=== PATIENT | male | born 1975 | race Caucasian/White ===

== ENCOUNTER 2017-03-04 13:42 | Inpatient (IN) | payer OTHER ==
[~2017-03-04] VITALS: Ht 177.8 cm; Wt 154.3 kg
--- NOTE | ~2017-03-04 | EKG ---
[facility] [address] [facility] [place], [place] [address] Draft EK completed, results pending confirmation PATIENT NAME: JENNIFER ARMSTRONG Electrocardiogram DATE OF : 77 PHYSICIAN: PRELIMINARY REPORT #: [id number] REPORT IS CONFIDENTIAL AND NOT TO BE RELEASED WITHOUT AUTHORIZATION
--- NOTE | ~2017-03-04 | HP ---
[facility] [address] [place], [place] [address] Draft DATE OF ADMISSION: 03/04/17 IDENTIFICATION This is a 41-year-old male who was worked up by the ER physician for left upper quadrant pain. Apparently, he had this same problem a couple weeks ago. He ended up getting a narcotic shot, getting better, going on home. ER physician stormy got blood work on him. His white count was elevated at 14.8 with 83% neutrophils, 331 platelets. His chem panel, sodium 135, potassium 3.8, creatinine 0.9, BUN 18. Urine is clean. CMP is also otherwise normal, LFTs, etc. CT scan showed that he has an appendix that is abnormally dilated. There is periappendiceal fat stranding. No periappendiceal fluid or extraluminal gas. Appendix measures up to 1.3 cm in diameter, got hepatic steatosis and colon diverticulosis. I reviewed the scan. I did not see a fecalith and I concur with the diagnosis and I went back and did an H and P on him. He has had pain today since this morning. He said he woke up around 11:00 with it. PAST MEDICAL HISTORY He denies hypertension, diabetes, tuberculosis, seizures or transfusion. There is no history of thromboembolic disease. ALLERGIES: He says he is allergic to fish. MEDICATIONS: He takes no medicines. PAST SURGICAL HISTORY: He has never had surgery. SOCIAL HISTORY He never smoked. Rarely uses alcohol. He is not , never been . Does not have any children. He does not have a regular doctor. 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 Lives locally on [address] His hobby is not much. 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 He says his weight is 280 pounds and he got bigger after he quit playing competitive hockey. REVIEW OF SYSTEMS Positive for being overweight. Negative for IL. Negative for angina. Negative for lung disease. Positive for the present illness as far as GI goes. Negative for musculoskeletal, or skin problems. Negative for blood problems such as hepatitis. Negative for endocrine problems. Negative for lymphatic problems. Positive for some history of depression after he quit hockey. PHYSICAL EXAMINATION: VITAL SIGNS: Normal in the ER. PATIENT NAME: JENNIFER ARMSTRONG HISTORY AND PHYSICAL DATE OF : 77 PHYSICIAN: GURVINDER MAGANA MD REPORT #: [id number] REPORT IS CONFIDENTIAL AND NOT TO BE RELEASED WITHOUT AUTHORIZATION [facility] [address] [place], [place] [address] Draft GENERAL: He is a big man. HEAD, EYES, EARS, NOSE, AND THROAT: Normal. NECK: Without jugular venous distention, masses or bruits. CHEST: Clear. HEART: Regular rate and rhythm. No rubs, gallops or murmurs. ABDOMEN: Bowel problems. He is morbidly obese. Huge pannus. He says he weighs 280 pounds. I do not detect any left upper quadrant tenderness when I examined him. When I pushed real deeply in the right lower quadrant, he says he has some discomfort there. Yet, obese people can have fair amount of pain in the adipose tissue. RECTAL: Did not do a rectal exam. EXTREMITIES: Pedal pulse exam is normal. NEUROLOGIC: Normal for motor, sensory and speech, and I presume he walked in here. IMPRESSION AND PLAN Acute appendicitis. It is 9:00 at night right now. I discussed with him some options. A: Appendectomy tonight, which would be open by me, big incision on a jewels this big just to get down there and do it versus sitting on him overnight, give him IV fluids and antibiotics and hopefully get one of the local surgeons, and I did talk to Dr. Brenner about this to consider laparoscopic appendectomy, which on someone this big, is a pretty good idea maybe and yet I am not skilled at laparoscopic appendectomies and I do not typically do those for acute appendicitis and I actually talked to Dr. Brenner who agreed that he would be willing to do this and he is taking care of people like this. Dr. Brenner related that that he has not done an appendectomy at nighttime in 12 years and that he probably would not get into it until after office is done tomorrow, but he has done that before and the likelihood of this jewels getting significantly worse is low and plus simply believe in treating appendicitis with antibiotics these days. Dr. Brenner and I both do not treat appendicitis with antibiotics, but the decision has been made with the patient who prefers laparoscopic procedure rather than open big incision by me to wait for Dr. Brenner, so we are going to tuck him in, give him IV antibiotics, Zosyn and Flagyl, pain management, some Dilaudid, preoperative load, incentive spirometry, cough him and deep breathe him, ambulation, sequential compression devices, repeat his labs in the morning and hopefully this stays quiet until he can be done by Dr. Brenner after Dr. Brenner finishes his clinic tomorrow. The low probability that he could get significantly worse and have more problems was discussed by me with the patient and I think in somebody this big, if we can hopefully cool him off until we get to him with the laparoscope with people who are skilled in doing laparoscopic appendectomies, it would probably be in the patient's best interest. The patient understands that there is a small risk of worsening condition due to delay in treatment and he is willing to accept that small risk. I have given him Zosyn 4.5 g IV every 6 hours, Flagyl 500 mg IV every 6 hours, Dilaudid for pain, Zofran for nausea. Some popsicles tonight, n.p.o. after 6:00 a.m. I will see him in the morning. Hopefully, he stays nice and quiet for us overnight and we can deal with him as the day goes along tomorrow. Orders were written. PATIENT NAME: JENNIFER ARMSTRONG HISTORY AND PHYSICAL DATE OF : 77 PHYSICIAN: GURVINDER MAGANA MD REPORT #: [id number] REPORT IS CONFIDENTIAL AND NOT TO BE RELEASED WITHOUT AUTHORIZATION [address] [address] Draft Gurvinder Magana MD JH/Modl /[id number] cc: Armando Brenner MD PATIENT NAME: JENNIFER ARMSTRONG HISTORY AND PHYSICAL DATE OF : [birth year] PHYSICIAN: GURVINDER MAGANA MD REPORT #: [id number] REPORT IS CONFIDENTIAL AND NOT TO BE RELEASED WITHOUT AUTHORIZATION
--- NOTE | 2017-03-04 21:45 | NUR ---
PT ARRIVED TO FLOOR VIA STRETCHER. PT ABLE TO STAND AND TRANSFER TO THE BED WITH MINIMAL ASSISTANCE, TOLERATED WELL. PT RATES PAIN 2/10. PT ASSESSMENT COMPLETED. BT'S ACTIVE. ABD OBESE, NON TENDER TO PALPATION. PT STATES THAT HE IS HUNGRY, REQUESTING POPSICLES. PT'S EXWIFE AT BEDSIDE, PT LAUGHING AND JOKING. PT DENIES NEEDS AT THIS TIME. CALL LIGHT WITHIN REACH.
--- NOTE | 2017-03-04 22:30 | NUR ---
INCENTIVE SPIROMETER PROVIDED AFTER PT FINISHED WITH POPSICLE. VERBAL EDUCATION PROVIDED ON IS USE. PT ABLE TO DEMONSTRATE ITS USE APPROPRIATELY. PT COUGHING AFTER USE, REPORTS SMALL AMOUNT OF MUCOUS PRODUCTION. DENIES HAVING COUGH PREVIOUSLY. EDUCATION PROVIDED REGARDING FREQUENCY OF IS USE. PT STATES UNDERSTANDING. SCD'S IN PLACE. PT REQUESTING ANOTHER POPSICLE, PROVIDED. PT DENIES FURTHER NEEDS CALL LIGHT IN REACH, EX REMAINS AT BEDSIDE.
--- NOTE | 2017-03-04 23:05 | NUR ---
PT SITTING UP IN BED USING CELL PHONE. PT RATES PAIN 4/10 STATES THAT THIS IS TOLERABLE. URINAL EMPTIED. PT DENIES FURTHER NEEDS. CALL LIGHT WITHIN REACH.
--- NOTE | 2017-03-04 23:30 | NUR ---
PT CALLS FOR ASSISTANCE TO TURN OFF LIGHTS. PT STATES THAT HE JUST HAS A SLIGHT HEADACHE, STATES THAT PAIN IS OTHERWISE WELL CONTROLLED. DENIES OTHER NEEDS AT THIS TIME. CALL LIGHT WITHIN REACH.
--- NOTE | 2017-03-05 02:55 | NUR ---
PT LYING IN BED WITH EYES CLOSED. WAKES EASILY. RATES PAIN 5/10 TO HEAD AND LUQ. PT REQUESTS PRN DILAUDID. 1 MG PRN DILAUDID ADMINISTERED. PT REPORTS IMMEDIATE HEADACHE AFTER MEDICATION ADMINISTRATION, REPORTS SIMILIAR EXPERIENCE IN ED EARLIER STATES "IT ONLY LASTS ABOUT 10 SECONDS". HEADACHE SUBSIDES. PT RATES PAIN 0/10. PT REQUESTS POPSICLES X 2. FALLS ASLEEP EASILY. PT STATES "I FEEL DROWSY". PT PLACED ON CONTINUOUS PULSE OXIMETERY. SAO2 93%. PT ASSESSMENT COMPLETE. BT'S ACTIVE. PT REPORTS TENDERNESS TO LUQ UPON PALPATION. ASSESSMENT OTHERWISE WNL. PT DENIES OTHER NEEDS AT THIS TIME. CALL LIGHT WITHIN REACH. PT PLAYING ON CELL PHONE.
--- NOTE | 2017-03-05 03:50 | NUR ---
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 PULSE OXIMETER SPD ALARM SOUNDING. SAO2 86%. PT PLACED ON 1 LPM VIA NC AND HOB ELEVATED SLIGHTLY. SAO2 95%. PT STATES THAT PAIN IS WELL CONTROLLED AT THIS TIME. DENIES NEEDS. CALL LIGHT WITHIN REACH
--- NOTE | 2017-03-05 05:09 | NUR ---
PT RESTING WITH EYES CLOSED, SNORING AUDIBLY. RESPIRATIONS 16. SPD ALARM SOUNDING ON PULSE OXIMETERY, SAO2 88%. O2 PLACED AT 2LPM VIA NC. HEAD OF BED REMAINS ELEVATED TO 20 DEGREES. DISCUSSED EARLIER WITH PT HX OF SLEEP APNEA. INQUIRED WHETHER PT'S EX COULD BRING CPAP MACHINE, PT STATES HE DOES NOT ALWAYS WEAR THE CPAP AND WOULD "BE OK WITHOUT IT".
--- NOTE | 2017-03-05 06:03 | NUR ---
PT RESTING IN BED WITH EYES CLOSED. WAKES EASILY. PT DENIES PAIN AT THIS TIME. PT ASSESSMENT COMPLETED. UNCHANGED FROM PREVIOUS. PT UP TO STAND ON SCALE, TOLERATED WELL. 1 POPSICLE PROVIDED AND PT DRANK REST OF WATER. WATER REMOVED FROM BEDSIDE, PT STATES UNDERSTANDING OF NPO STATUS AT THIS TIME. PT DENIES FURTHER NEEDS. SITTING UP IN BED USING CELL PHONE AT THIS TIME. CALL LIGHT WITHIN REACH.
--- NOTE | 2017-03-05 06:14 | NUR ---
PT RESTED WELL THIS SHIFT. PRN DILAUDID ADMINISTERED X 1. O2 @ SLPM WHILE SLEEPING DUE TO HX OF SLEEP APNEA. PT WEARS CPAP @ HOME. PLAN FOR ZACK TO PERFORM SURGERY TODAY. LR @ 175 TO DECREASE TO 150 AFTER CURRENT LITER FINISHES. PT NPO SINCE 0600, MAY HAVE ICE CHIPS AND HARD CANDY. DAILY WEIGHT. SBA.
--- NOTE | 2017-03-05 07:35 | NUR ---
received bedside report from Hanh FLORES at 0700. Patient awakened to sound. Continuous pulse ox in place. Pt desats during apneic episodes d/t sleep apnea. LUQ pain when palpated. Ice chips provided. NPO after 0600 today. Will await orders and plan from surgeon. Pt resting comfortably now. LR infusing at 175 now. Will change bag and decrease rate to 150 when current bag finishes. SCDs in place. Weight received this mornin.6lb.
--- NOTE | 2017-03-05 08:48 | NUR ---
CPAP ORDERED PER REQUEST FROM RN TO MD. PT DESATURATING TO 78% DURING APNEIC EPISODES. RESPIRATORY THERAPY ASSESSING PATIENT NOW FOR CPAP THERAPY.
--- NOTE | 2017-03-05 17:30 | NUR ---
pt off floor for surgery at 1730 with WALTER RN. Wipe down completed. LR with straight tubing connected to IV. Clean gown provided.
--- NOTE | 2017-03-05 19:00 | NUR ---
RECEIVED REPORT FROM RN. PT. OFF FLOOR IN SURGERY.
--- NOTE | 2017-03-05 19:13 | NUR ---
03/05/171912 Kyra Conde PT COUGHING AND SPLINTING ABDOMEN WELL. PT CONTINUES TO DENY PAIN. OXYGEN SATURATION REMAINS 97% ON 6L VIA MASK. OXYGEN REMOVED @ THIS TIME.
--- NOTE | 2017-03-05 20:17 | EKG ---
[facility] [address] [facility] [place], [place] [address] Signed Normal sinus rhythm Normal ECG When compared with ECG of 04-MAR-2017 21:15, (Unconfirmed) No significant change was found Confirmed by SUNITHA APONTE MD ([id number]) on 03/05/2017 8:17:06 PM Electronically Signed By: SUNITHA APONTE MD 03/05/172016 PATIENT NAME: JENNIFER ARMSTRONG Electrocardiogram DATE OF : 77 PHYSICIAN: SUNITHA APONTE MD REPORT #: [id number] REPORT IS CONFIDENTIAL AND NOT TO BE RELEASED WITHOUT AUTHORIZATION
--- NOTE | 2017-03-05 20:17 | NUR ---
PATIENT BACK TO FLOOR FROM SURGERY. HE REPORTS 5/10 ABD PAIN AND URETHRAL PAIN. PAIN MEDICATION GIVEN PER EMAR. SHIFT ASSESSMENT DONE. PATIENT DENIES FURTHER NEEDS AT THIS TIME.
--- NOTE | 2017-03-05 21:19 | NUR ---
PATIENT REPORTS 5/10 ABD PAIN. ADMINISTERED ANOTHER PAIN MEDICATION PER EMAR. PATIENT DENIES NEEDS AT THIS TIME.
--- NOTE | 2017-03-05 22:20 | NUR ---
POST OP VITALS, THIRD SET COMPLETE. PT RATES PAIN 3/10 TO ABD. PT HAS ICE PACK TO ABD. DENIES NEED FOR BREATHTHROUGH PAIN MEDICATION AT THIS TIME. PT AGREES TO UTILIZES CALL LIGHT FOR FURTHER NEEDS.
--- NOTE | 2017-03-05 23:15 | NUR ---
PATIENT REPORTS 4/10 ABD PAIN. DENIES NEED FOR PAIN MEDICATION AT THIS TIME. PATIENT HAS NO OTHER NEEDS AT THIS TIME.
--- NOTE | 2017-03-06 02:31 | NUR ---
PATIENT REPORTS 0/10 PAIN. HE STATES THAT "PAIN SPIKES WHEN I MOVE, BUT IT IS TOLERABLE." DENIES ANY NEEDS AT THIS TIME.
--- NOTE | 2017-03-06 03:58 | NUR ---
PATIENT WATCHING TV IN BED. DENIES PAIN AND HAS NO NEEDS AT THIS TIME.
--- NOTE | 2017-03-06 05:19 | NUR ---
PATIENT'S NIGHT WAS UNEVENTFUL WITH PATIENT SITTING IN BED WATCHING TV THROUGHOUT SHIFT. VSS, NO COMPLAINTS OF NAUSEA. PAIN MEDICATION ADMINISTERED X2 PER EMAR. PATIENT REPORTED THAT HE HAD MINIMAL ABD PAIN WITH DECREASED ACTIVITY. NO ACUTE CHANGES FROM BEGINNING OF SHIFT ASSESSMENT, INTENTIONAL ROUNDING DONE WITH ALL PATIENT'S NEEDS MET.
--- NOTE | 2017-03-06 07:36 | NUR ---
BEDSIDE REPORT. PT ON BPAP, ALERT TO STAFF IN ROOM. NO REQUESTS OR NEEDS
--- NOTE | 2017-03-06 09:47 | NUR ---
PT ALERT AND ORIENTED. PT REPORTS NO PAIN LONG HE DOESNT MOVE. EDUCATION GIVEN TO PT OF NEED TO BE UP AND AMBUALTING TODAY. PT ADMINSTERED ONE TAB NORCO TO HELP COVER PAIN FOR WALKING. PT TOLERATING FULL LIQUID THIS AM, NO NAUSEA OR VOMITING. PT USING BIPAP WHILE SLEEPING.
--- NOTE | 2017-03-06 11:06 | NUR ---
MED REC COMPLETE, PATIENT TAKES NO HOME MEDS.
--- NOTE | 2017-03-06 11:18 | NUR ---
pt now in recliner after ambulating in halls.
--- NOTE | 2017-03-06 12:16 | NUR ---
PT HAD JUST TAKEN CPAP MASK OFF AND WELCOMED ME IN HIS RM. HE HAD LAP APPY YESTERDAY AFTERNOON, SORE BUT SEEMED PLEASED WITH HIS PROGRESS SO FAR. THANKED ME FOR VISIT, RN CAME IN TO GET PT UP TO WALK. WILL FOLLOW NEEDED
--- NOTE | 2017-03-06 15:18 | NUR ---
PT REPORTS HE HAS NOT HAD FLATUS YET BUT DID HAVE BM BEFORE SURGERY YESTURDAY. PT REPORTS MINIMAL PAIN AT REST, PT ADMINISTERED TWO TABS NORCO FOR PAIN COVERAGE TO AMBUALATE IN HALLS. PT ALERT AND ORIENTED.
--- NOTE | 2017-03-06 16:42 | NUR ---
PT AMBUALTED 6 LAPS ON MED/SURG UNIT INDEPENDENTLY, TOLERATED ACTIVITY WELL
--- NOTE | 2017-03-06 18:01 | NUR ---
PT HAS BEEN UP AMBULATING IN HALLS TOLERATED ACTIVITY WELL. HAS BEEN UP IN RECLINER WELL. TOLERATING FULL LIQUID DIET WELL. PAIN WELL MANAGED WITH PO NORCO. NO NAUSEA. SCDS ON, IV INFUSING WNL. PT USES BIPAP AT BEDSIDE WHEN SLEEPING. INCISIONS WELL PROXIMATED AND OPEN TO AIR
--- NOTE | 2017-03-06 20:02 | NUR ---
pt complained of 4/10 pain in his abd, gave norco for pain. pt laying in bed, watching tv. no apparent distress. very friendly and talkative. gave fresh ice pack. call light in reach. no further needs.
--- NOTE | 2017-03-06 20:30 | NUR ---
PT ASSESSMENT COMPLETE. PT RATES PAIN 4/10, STATES RECEIVING PAIN MEDICATION A FEW MINUTES EARLIER. PT ON ROOM AIR, DENIES ANY SOB. R.T AT BEDSIDE ASSESSING PT. CPAP WITH 3 LPM O2 BLED IN AT BEDSIDE, ENCOURAGED TO USE WITH SLEEP. ABDOMINAL LAP SITES OPEN TO AIR, WELL APPROXIMATED. IV SALINE LOCKED. PT DENIES ANY N/V, TOLERATING FULL LIQUID DIET WELL. CALL LIGHT WITHIN REACH. PT DENIES ANY FURTHER NEEDS AT THIS TIME.
--- NOTE | 2017-03-07 00:03 | NUR ---
PT C/O NAUSEA, PHENERGAN GIVEN. PT C/O BEING TOO HOT, DECREASED TEMP IN ROOM. PT UP AMBULATING THE HALLS INDEPENDENTLY. IV FLUIDS INFUSING WITHOUT DIFFICULTY. PT DENIES ANY NEEDS AT THIS TIME.
--- NOTE | 2017-03-07 02:10 | NUR ---
PT SATS DECREASED TO 82% ON ROOM AIR WHILE SLEEPING, WOKE PT UP AND PUT PT ON CPAP WITH 3 LPM O2 BLED IN, SATS NOW HIGH 90'S. PT DENIES ANY NEEDS AT THIS TIME.
--- NOTE | 2017-03-07 05:31 | NUR ---
PT HAD AN UNEVENTFUL NIGHT, SLEPT WELL. PT NEEDS TO WEAR CPAP WITH SLEEP, DESATS INTO LOW 80'S. 3 LPM O2 BLED INTO CPAP, CONTINUOUS PULSE OXIMETER IN PLACE DURING SLEEP. IV FLUIDS INFUSING WITHOUT DIFFICULTY. PT AMBULATES INDEPENDENTLY IN HALLS. TOLERATING FULL LIQUID DIET. NAUSEA x1 AFTER PAIN MEDICATION GIVEN, PHENERGAN GIVEN. PT RECEIVED NORCO FOR PAIN x1. VOIDING WELL. INCISIONS TO ABDOMEN ARE OPEN TO AIR, WELL APPROXIMATED. PT PLAN IS TO POSSIBLY D/C HOME TODAY.
--- NOTE | 2017-03-07 06:49 | CONS ---
[facility] [address] [place], [place] [address] Signed DATE OF CONSULTATION: 03/05/17 REFERRING PHYSICIAN: Tan Scott MD CHIEF COMPLAINT Left upper quadrant abdominal pain with nausea, vomiting, and dehydration. HISTORY OF PRESENT ILLNESS Philip is a 41-year-old, obese gentleman, who for some reason was complaining of left upper quadrant abdominal pain, but he had significant nausea, vomiting, and dehydration for at least a day. He said this happened to him once several months ago. He was feeling quite miserable, so he came to the emergency room for evaluation. In retrospect, he thinks maybe the left upper quadrant pain was from all the vomiting. He had been seen by the ER doctor and then asked to be admitted by Dr. Tan Scott, who is our local surgeon. It was found that his white count was elevated with the elevated space urine specific gravity. CT scan was consistent with a dilated inflamed appendix with periappendiceal inflammation. He also has a low diverticulosis. I have been asked to see him in consultation for consideration of laparoscopic rather than an o pen appendectomy. In the meantime, he has been admitted, hydrated, and given IV antibiotics. Overall, he said he is feeling better. His white count has come down to 10.9. He still has pain to deep palpation just below McBurney's point. PAST MEDICAL HISTORY: Diverticulosis and right rotator cuff tear. PAST SURGICAL HISTORY: None. SOCIAL HISTORY He does not smoke. He has a drink once in a while. He has no primary care provider. He is single, but his ex-girlfriend is with him currently. He has no children. 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 FAMILY HISTORY His mother had skin cancer. Dad had some type of benign pituitary tumor and then diabetes. REVIEW OF SYSTEMS He had 10 systems reviewed and the pertinent positives are included in the above. ALLERGIES: Fish, particularly Cod, causes hives and sweating. MEDICATIONS: None. PHYSICAL EXAMINATION VITAL SIGNS: Blood pressure is 161/84. His heart rate is 73, respiratory rate 17, Electronically Signed By: EMELYN DIXON MD 03/07/17 0649 PATIENT NAME: PHILIP ARMSTRONG CONSULTATION DATE OF : 77 PHYSICIAN: EMELYN DIXON MD REPORT #: [id number] REPORT IS CONFIDENTIAL AND NOT TO BE RELEASED WITHOUT AUTHORIZATION [facility] [address] [place], [place] [address] Signed temperature is 97.5. He is 100% on room air. He is 5 feet 10 inches, 151 kg. GENERAL: Philip is a 41-year-old obese gentleman lying supine in his hospital bed. His ex-girlfriend is here in the room. He does not appear systemically ill or toxic. LUNGS: Generally clear to auscultation bilaterally. HEART: Regular rate and rhythm. ABDOMEN: Obese, soft, tender to deep palpation in the right lower quadrant below McBurney's point. No evidence of any peritoneal signs or symptoms. LABORATORY DATA His white blood cell count was initially 14.8, is now 10.9. He is on the edge of anemia with a hemoglobin of 13 and a mean cell volume of 80, neutrophils were 70. BUN 12, creatinine 0.8. Liver function tests negative. Urine specific gravity was high at 1.046. RADIOGRAPHIC STUDIES CT scan and pelvis is reviewed personally along with the report. He clearly has an inflamed thickened appendix with periappendiceal inflammation. He also has the diverticulosis. Nothing specific in the left upper quadrant. ASSESSMENT AND PLAN Philip is a 41-year-old gentleman who presents with classic acute appendicitis. It looks like the appendix is below the cecum and somewhat posteriorly, and I think that is part of what was hiding his right lower quadrant abdominal pain, but he certainly has a nausea, vomiting, and dehydration. He is now feeling much better after his I V fluids and his antibiotics. I have discussed with Philip and his ex-girlfriend the location of function of the appendix. We discussed laparoscopic versus open appendectomy. He understands the expected intraoperative and postoperative course. There is risk of surgery including, but not limited to bleeding, infection, scarring, change in contour of the skin, damage to bowel, damage to main bile duct, and incisional hernias as well as other unforeseen comorbidities. He has expressed understanding and would like to proceed. MD MARY Leal/Modl /[id number] Electronically Signed By: EMELYN DIXON MD 03/07/17 0649 PATIENT NAME: PHILIP ARMSTRONG CONSULTATION DATE OF : 77 PHYSICIAN: EMELYN DIXON MD REPORT #: [id number] REPORT IS CONFIDENTIAL AND NOT TO BE RELEASED WITHOUT AUTHORIZATION
--- NOTE | 2017-03-07 06:49 | OR ---
[facility] [address], [place] [address] Signed DATE OF PROCEDURE: 03/05/17 PREOPERATIVE DIAGNOSIS: Acute suppurative appendicitis. POSTOPERATIVE DIAGNOSIS: Acute suppurative appendicitis. PROCEDURE PERFORMED: Laparoscopic appendectomy. ESTIMATED BLOOD LOSS: None. INDICATIONS FOR SURGERY Philip is a 41-year-old obese gentleman who at least today had what looked like left upper quadrant abdominal pain with nausea, vomiting, dehydration. He came to the emergency room for evaluation. He thinks he h ad something similar a month or so ago. He is obese and it is difficult to examine his abdomen, but with deep palpation, he seemed to have tenderness below McBurney's point in the right lower quadrant. He thought later that maybe a pain in his left upper quadrant was from all the vomiting. His white count was elevated and a CT scan was performed. His urine specific gravity was also elevated. He had a thick and inflamed appendix with periappendiceal abscess and a little bit diverticulosis, nothing in the le f t upper quadrant pathologically. He was admitted by our locum surgeon, Dr. Tan Scott. He was hydrated and given Zosyn and Flagyl and pain control. After a long discussion with Philip, he really wanted to undergo laparoscopic appendectomy. Dr. Scott had called me in that regard. I met with Philip the following day. I had a long discussion with Philip and his ex-girlfriend. We discussed the location and function of the appendix. We discussed laparoscopic versus open appendectomy. He understands the expected intraop and postop course. There is a risk to surgery including, but not limited to bleeding, infection, scarring, change in contour of the skin, damage to bowel, appendiceal stump leak, postoperative intraabdominal abscess, incisional hernias and other unforeseen comorbidities. He had expressed understanding and wished to proceed. PROCEDURE NOTE Philip was taken into the operating room and placed in the supine position under general endotracheal tube anesthesia. He was already on preoperative antibiotics. He was given subcutaneous heparin. SCDs were utilized. Crabtree catheter was inserted with a return of clear yellow urine. He was then prepped and draped in the usual sterile fashion. All trocars were placed in usual positions under direct visualization of camera without difficulty. Dr. Scott was assisting. After this, we followed the anterior taenia coli down to the base of the appendix and we could see that he had a retrocecal appendix circling up back along the right gutter. It took just a few minutes to free up the cecum from the white line of Toldt as well as the appendix somewhat laterally and then base of the appendix was cleared off next to the cecum. We divided the appendix Electronically Signed By: EMELYN DIXON MD 03/07/17 0649 PATIENT NAME: PHILIP ARMSTRONG OPERATIVE REPORT DATE OF : 77 PHYSICIAN: EMELYN DIXON MD REPORT #: [id number] REPORT IS CONFIDENTIAL AND NOT TO BE RELEASED WITHOUT AUTHORIZATION [facility] [address] [place] [id number] Signed from the cecum with the linear stapler. The staple line was gently cauterized for hemostasis. After this, we used our vascular load and we divided the mesoappendix. Again, the staple line was gently cauterized for hemostasis. The appendix was then placed into an EndoCatch bag and taken out through the right subcostl trocar site. We used our laparoscopic suturing device to pass 0 Vicryl suture on either side of the fascia of the subxiphoid trocar site. This was tied down to close this fascia primarily. After this, the gas was allowed to escape and the remaining trocars removed along with appendix. We closed the supraumbilical fascial defect with interrupted simple and [id number] 0 Vicryl sutures. Local anesthetic was copiously injected into all trocar sites. Each trocar site was irrigated and suctioned out until clear. The skin and dermis of each trocar site was closed with interrupted 3-0 subcuticular Monocryl sutures. Dry gauze and tape were applied on all incisions. Philip was awakened from his anesthesia, extubated in the OR, and taken to recovery room in stable condition. MD MARY Leal/Rubyl /[id number] Electronically Signed By: EMELYN DIXON MD 03/07/17 0649 PATIENT NAME: PHILIP ARMSTRONG OPERATIVE REPORT DATE OF : 77 PHYSICIAN: EMELYN DIXON MD REPORT #: [id number] REPORT IS CONFIDENTIAL AND NOT TO BE RELEASED WITHOUT AUTHORIZATION
--- NOTE | 2017-03-07 07:30 | NUR ---
PATIENT RESTING WITH HOME CPAP ON, REPORT GIVEN TO ME AT THIS TIME FROM DAVY PATIENT ABLE TO AROUSE EASILY AFTER SAYING HIS NAME.
--- NOTE | 2017-03-07 08:00 | NUR ---
PATIENT AWAKE FOR ASSESSMENT, CPAP FROM HOME REMAIN ON, PATIENT REQUESTING PAIN MEDICATION AT THIS TIME FOR ABDOMINAL PAIN 08/25. ABDOMINAL SCOPE SITES ARE CDI WITHOUT ANY DRESSINGS. NO DRAINAGE NOTED. JODEE HAS ACTIVE BOWEL TONES BUT IS NOT PASSING GAS YET.
--- NOTE | 2017-03-07 08:40 | NUR ---
PATIENT GIVEN 1 TABLET OF NORCO PO 10/325 AT THIS TIME AND FLU VACCINE CONSENT SIGNED AND GIVEN IM.
[2017-03-07] MEDS ORDERED: MULTI VITAMIN1 EACH PO (09:47)
--- NOTE | 2017-03-07 09:49 | NUR ---
MED REC COMPLETE
--- NOTE | 2017-03-07 10:01 | NUR ---
PATIENT RESTING WELL AT THIS TIME AND HAS NO C/O PAIN OR NAUSEA AT THIS TIME. PATIENT ATE 100% OF HIS BREAKFAST WHICH WAS CREAM OF WHEAT. PATIENT DENIES OTHER NEEDS AT THIS TIME.
--- NOTE | 2017-03-07 11:31 | NUR ---
PATIENT SITTING UP IN BED, AWAKE AND EATING LUNCH. PATIENT HAS NO C/O PAIN OR NAUSEA. TOLERATING A REGULAR DIET WELL.
--- NOTE | 2017-03-07 12:08 | NUR ---
TALKED TO PATIENT ABOUT A SHOWER. HE WANTS TO WAIT UNTIL 1300. WILL CHECK AGAIN. FRESH ICE WATER GIVEN CALL BUTTON IN REACH. NO OTHER NEEDS AT THIS TIME.
--- NOTE | 2017-03-07 12:51 | NUR ---
PATIENT RESTING, HAS AMBULATED TO THE BATHROOM TO VOID. PATIENT IS STABLE ON HIS FEET AND HAS NO C/O PAIN AT THIS TIME. DENIES OTHER NEEDS.
--- NOTE | 2017-03-07 13:50 | NUR ---
PATIENT UP TO SHOWER. LINENS CHANGED. FRESH ICE WATER GIVEN. NO OTHER NEEDS AT THIS TIME.
--- NOTE | 2017-03-07 13:58 | NUR ---
IV PUMP CLEARED, PATIENT IV SALINE LOCKED FOR PATIENT TO GET UP TO THE SHOWER WITH QUALITY CONTROL HEAD.
--- NOTE | 2017-03-07 15:44 | NUR ---
I APPARENTLY WOKE PT UP. HE WAS LYING IN BED, WITH CPAP MASK ON. HE WAS HAVIONG A HARD TIME WAKING UP. I ASKED HIM IF HE HAD BEEN UP AND WALKING YET-NOT YET. WE JOKED ABOUT HIM NOT BEING AT WORK AND THAT THE PLACE WAS COMING APART AT THE SEAMS! HE LAUGHED. I ENCOURGED HIM TO PARTICIPATE IN HIS OWN RECOVERY. EXTENDED A BLESSING
--- NOTE | 2017-03-07 15:49 | NUR ---
PATIENT UP AMBULATING THE HALLWAY INDEPENDENTLY.
--- NOTE | 2017-03-07 16:00 | NUR ---
PATIENT UP AMBLUTATING IN THE HALLWAY.
--- NOTE | 2017-03-07 16:17 | NUR ---
PATIENT C/O 4/10 ABDOMINAL PAIN AFTER AMBULATING, PATIENT GIVEN 1 10/ NORCO PO. PATIENT IS UP IN THE CHAIR.
--- NOTE | 2017-03-07 17:14 | NUR ---
PATIENT SITTING UP IN BED WATCHING TV. FRESH ICE WATER GIVEN. NO OTHER NEEDS AT THIS TIME. CALL BUTTON IN REACH.
--- NOTE | 2017-03-07 17:54 | NUR ---
PATIENT UP AMBULATING HALLWAY.
--- NOTE | 2017-03-07 18:06 | NUR ---
patient up ambulating the hallway, patient is steady on his feet. no c/o pain or dizziness.
--- NOTE | 2017-03-07 18:37 | NUR ---
PATIENT UP AMBULATING THE HALLWAY INDEPENDENTLY
--- NOTE | 2017-03-07 18:40 | NUR ---
PATIENT UP AMBULATING IN HALLWAY.
--- NOTE | 2017-03-07 18:46 | NUR ---
DOCTOR DIXON CALLED AND ORDER RECEIVED TO SALINE LOCK THE PATIENT AT THIS TIME.
--- NOTE | 2017-03-07 19:10 | NUR ---
REPORT RECV'D FROM SANDRA LOPEZ. PT UP IN HALLWAY AMBULATING. PT DENIES PAIN AND NAUSEA. PT INDEPENDENT IN ROOM. NO NEEDS AT THIS TIME. CALL LIGHT IN REACH.
--- NOTE | 2017-03-07 20:54 | NUR ---
IN TO SEE PT, PT AWAKE WATCHING TV. PT C/O 09/25 ABD PAIN. NORCO GIVEN. ASSESSMENT COMPLETE. PT PASSING GAS. INDEPENDENT IN ROOM. NO FURTHER NEEDS AT THIS TIME. CALL LIGHT IN PLACE.
--- NOTE | 2017-03-07 22:30 | NUR ---
PT AMBULATING IN HALLWAY INDEPENDENTLY. TOLERATING WELL.
--- NOTE | 2017-03-07 23:10 | NUR ---
PT CALLED, IN TO CHECK ON PT. PT APPLIED CPAP. RT CALLED PER PT REQUEST. NO FURTHER NEEDS AT THIS TIME. CALL LIGHT IN REACH.
--- NOTE | 2017-03-08 02:53 | NUR ---
IN TO CHECK ON PT, PT SLEEPING. CPAP IN PLACE. RR EVEN AND UNLABORED. NO APPARENT DISTRESS NOTED. CALL LIGHT WITH IN REACH.
--- NOTE | 2017-03-08 04:44 | NUR ---
PT HAS HAD UNEVENTFUL SHIFT, SLEPT WELL. NORCO GIVEN FOR PAIN X1. PT AMBULATES INDEPENDENTLY IN HALLWAYS, TOLERATES WELL. REGUALR DIET, TOLERATING WELL. PT USES CPAP AT NIGHT. SL IN L FORARM. PT HAS BEEN PASSING GAS. NO BM. SCOPE SITE INTACT, WELL APPROXIMATED.
--- NOTE | 2017-03-08 07:10 | NUR ---
BEDSIDE REPORT RECEIVED FROM SANDRA BAY. PT ASLEEP IN BED. WILL CONTINUE TO MONITOR.
[2017-03-08] MEDS ORDERED: NORCO 10-325 T1 EACH PO (07:55)
[2017-03-08] MEDS ORDERED: ZOFRAN ODT4 MG PO (07:56)
[2017-03-08] MEDS ORDERED: PROMETHAZINE HC25 M1 PO (07:56)
--- NOTE | 2017-03-08 08:00 | NUR ---
PT USED BATHROOM AND IS NOW SITTING UP IN CHAIR WITH CALL LIGHT IN REACH. PT ASKED FOR MORE ICE WATER
--- NOTE | 2017-03-08 09:43 | NUR ---
PT MORNING ASSESSMENT COMPLETE. SURGICAL SITES CDI, SOME BRUISING AROUND SITES. PT ALERT AND ORIENTED X3. LUNGS CLEAR. BOWEL TONES ACTIVE X4, ABDOMEN NON-TENDER, SOFT. PT STATES NO PAIN, NO NAUSEA AT THIS TIME. EDUCATED PT ON AVAILABLE PRN MEDICATIONS FOR PAIN. COVERED IV SITE WITH PLASTIC BAG FOR PT TO SHOWER. WILL CONTINUE TO MONITOR.
--- NOTE | 2017-03-08 09:53 | NUR ---
PT IS IN BATHROOM SHOWERING, LINENS HAVE BEEN CHANGED. PT DID NOT NEED ANYTHING ELSE AT THE MOMENT
--- NOTE | 2017-03-08 11:00 | NUR ---
PT UP AMBULATING MEDICAL SURGICAL FLOOR INDEPENDENTLY. PT GAIT STEADY. PT GIVEN MORE ICE WATER.
--- NOTE | 2017-03-08 12:19 | NUR ---
PT COMPLAINING OF 3/10 PAIN IN ABDOMEN. PT REQUESTING NORCO. ADMINISTERED 1 TABLET NORCO. WILL CONTINUE TO MONITOR.
--- NOTE | 2017-03-08 14:10 | NUR ---
PT IS SITTING UP IN CHAIR WATCHING TV. PT IS INDEPENDENT IN RM AND HAS NOW WALKED THREE SEPERATE TIMES OUT IN THE [address] WAY
--- NOTE | 2017-03-08 15:12 | NUR ---
PT STATING 0/10 PAIN AT THIS TIME. FLUSHED IV SITE, IV PATENT. WILL CONTINUE TO ASSESS, CALL LIGHT IN REACH.
--- NOTE | 2017-03-08 15:35 | NUR ---
Went into pt's room again to update him on his return to work date, which is March 16 this was the second time. I am having Dr. Ruiz office fax us a work release.
--- NOTE | 2017-03-08 16:11 | NUR ---
PATIENT AWAKE IN BED. HELPED NURSE JOCELENE TAKE HIM TO THE BATHROOM. ALSO PUT NEW PJ BOTTOMS ON HIM. NOW HE IS RESTING IN HIS CHAIR.
--- NOTE | 2017-03-09 10:27 | DS ---
[facility] [address] [place], [place] [address] Signed DATE OF DISCHARGE: 03/08/17 FINAL DIAGNOSIS: Acute suppurative appendicitis. PROCEDURE: Laparoscopic appendectomy. 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 He developed nausea, vomiting, and dehydration along with left upper quadrant abdominal pain for about a day. He came to emergency room for evaluation. In the emergency room, he has tender nodule in left upper quadrant with some in the right lower quadrant as well. His white count was elevated. Urine specific gravity was elevated. A CT scan of the abdomen and pelvis showed he has acute appendicitis. HOSPITAL COURSE Philip was initially admitted by Dr. Gurvinder Scott who is our Locum Surgeon. After long discussion with Bulmaro, he was open for laparoscopic appendectomy. Consequently, Dr. Scott had called me in consultation to see him the following morning. In the meantime, he was admitted, hydrated, and started on IV antibiotics along with pain control. Philip did quite well. We took him to the operating room that evening on 03/05/2017 and he underwent an uncomplicated laparoscopic appendectomy. His intra and postop course were uncomplicated. He said last night around 10:00 p.m., he started feeling much better. He has been eating and passed a little flatus but has not had a bowel movement at this point. He also told me the Hydrocodone makes him a little nauseated and he wondered if he could have some Phenergan or Zofran at the time of discharge. At this point, he is doing well. We are going to send him home. He does live here in [place] in apartment by himself. However, at this point, he should do just fine. DISCHARGE PLANS AND MEDICATIONS Philip will be discharged home with a prescription for Davis 10/325 1-2 p.o. q.4-6 hours p.r.n. pain. We will dispense 50 tablets with no refills. Also, Phenergan 25 mg p.o. q.4-6 hours p.r.n. for nausea and vomiting, dispense 20 tablets with 1 refill. In addition, we will send him home with Zofran 4 mg, sublingual q.4-6 hours p.r.n. for nausea and vomiting, dispense 10 tablets with no refills. We have asked that he is well aware that he can perform his activities of daily living including walking up and down stairs and showering bathing as needed. He is welcome to drive as needed. He can follow a regular diet. I have asked him not to lift over about 25 pounds for a month, 50 pounds second month, and after that, no restrictions. In about a week when he is feeling better, he is welcome to return to work. In the meantime, we will have him back in the office in about 7-10 days for follow-up. He has expressed understanding and agrees with above plan. Electronically Signed By: EMELYN DIXON MD 03/09/17 1027 PATIENT NAME: PHILIP ARMSTRONG DISCHARGE SUMMARY DATE OF : 77 PHYSICIAN: EMELYN DIXON MD REPORT #: [id number] REPORT IS CONFIDENTIAL AND NOT TO BE RELEASED WITHOUT AUTHORIZATION [address] [address] Signed MD MARY Leal/Elham /[id number] Electronically Signed By: EMELYN DIXON MD 03/09/17 1027 PATIENT NAME: PHILIP ARMSTRONG GURVINDER DISCHARGE SUMMARY DATE OF : 77 PHYSICIAN: EMELYN DIXON MD REPORT #: [id number] REPORT IS CONFIDENTIAL AND NOT TO BE RELEASED WITHOUT AUTHORIZATION
== END 2017-03-08 17:40 | disposition home or self-care (01) | DRG 343 ==
LOC: ED 13:42 → MS 21:05
PROVIDERS: Colon & Rectal Surgery; ADMIT Surgery
PROC: 0DTJ4ZZ Resection of Appendix, Percutaneous Endoscopic Approach (ICD-10-PCS; principal; 2017-03-05 17:30)
DX: K35.80 Unspecified acute appendicitis (principal); Z91.013 Allergy to seafood; K76.0 Fatty (change of) liver, not elsewhere classified; K57.30 Diverticulosis of large intestine without perforation or abscess without bleeding
CPT/HCPCS: 00840; 36415; 74176; 74177; 80053; 81001; 82150; 83690; 85025; 85610; 85730; 86850; 86900; 86901; 90674; 93005; 93010; 94660; 94762; 96361; 96365; 96375; 99285; G0008; J1170; J1644; J1885; J2405; J2543; J2550; J2704; J3010; J7030; J7120